=== PATIENT | male | born 1955 | race Caucasian/White ===

== ENCOUNTER 2017-02-04 14:05 | Outpatient (CLI) ==
[2015-02-24 16:30] VITALS: BMI 29.3
[2017-02-04 14:44] LABS: CALCIUM 9.5 mg/dL (8.2-10.2); POTASSIUM 4.5 mmol/L (3.5-5.1)
[2017-02-04 14:45] LABS: ANION GAP 14.5; BUN/CREATININE RATIO 12.62; CREATININE 2.06 mg/dL (0.60-1.10)
== END 2017-02-04 14:06 | disposition home or self-care (01) ==
LOC: LAB 14:05
PROVIDERS: ATTEND Internal Medicine Cardiovascular Disease
DX: I10 Essential (primary) hypertension (principal)
CPT/HCPCS: 36415; 80048

== ENCOUNTER 2017-04-28 13:29 | Outpatient (CLI) | payer OTHER ==
[2015-02-24 16:30] VITALS: BMI 29.3
[2017-04-28 14:16] LABS: ALBUMIN 3.9 g/dL (3.4-5.0); ANION GAP 11.5; BILIRUBIN,TOTAL 0.96 mg/dL (0.00-1.20); BUN/CREATININE RATIO 11.29; CALCIUM 9.8 mg/dL (8.2-10.2); CHOL/HDL RATIO 3.6 (4.5-6.4); CREATININE 1.86 mg/dL (0.60-1.10); POTASSIUM 4.5 mmol/L (3.5-5.1); TOTAL PROTEIN 7.8 g/dL (5.8-8.1)
== END 2017-04-28 13:30 | disposition home or self-care (01) ==
LOC: LAB 13:29
PROVIDERS: ATTEND Internal Medicine Cardiovascular Disease
DX: E78.5 Hyperlipidemia, unspecified (principal)
CPT/HCPCS: 36415; 80053; 80061

== ENCOUNTER 2018-12-28 12:27 | Outpatient (CLI) ==
[2015-02-24 16:30] VITALS: BMI 29.3
== END 2018-12-28 12:28 | disposition home or self-care (01) ==
LOC: LAB 12:27
PROVIDERS: ATTEND Internal Medicine Cardiovascular Disease
DX: R07.9 Chest pain, unspecified (principal)
CPT/HCPCS: 36415; 80048; 85025

== ENCOUNTER 2019-01-21 15:20 | Outpatient (CLI) | payer OTHER ==
[2015-02-24 16:30] VITALS: BMI 29.3
== END 2019-01-21 15:21 | disposition home or self-care (01) ==
LOC: LAB 15:20
PROVIDERS: ATTEND Internal Medicine Cardiovascular Disease
DX: R93.1 Abnormal findings on diagnostic imaging of heart and coronary circulation (principal); Z01.810 Encounter for preprocedural cardiovascular examination
CPT/HCPCS: 36415; 80048; 85025